=== PATIENT | male | born 1985 | race African-American/Black ===

== ENCOUNTER 2024-08-10 06:23 | Observation (INO) | payer OTHER, SELFPAY ==
[2024-08-10 04:10] VITALS: BMI 24.6
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
[2024-08-10] MEDS: PROTONIX 100 IV (05:24)
[2024-08-10 05:54] LABS: PT 12.7 Sec (11.4-14.6)
[2024-08-10 05:55] LABS: % Basophils 0.3 % (0-2); % Eosinophils 0.3 % (0-6); % Immature Granulocytes 0.3 % (0-0.5); % Lymphocytes 19.8 % (20.5-51.1); % Monocytes 8.4 % (1.7-9.3); % Neutrophils 70.9 % (42.2-75.2); APTT 35.7 Sec (23.4-35.0); Absolute Lymphocytes 1.3 10^3/uL (1.2-3.4); Absolute Monocytes 0.6 10^3/uL (0.1-0.6); Absolute Neutrophils 4.7 10^3/uL (1.4-6.5); Hematocrit 35.5 % (39.0-52.0); Hemoglobin 11.4 g/dL (13.0-18.0); Mean Corp Hgb Conc. 32.1 g/dL (33.0-37.0); Mean Corpuscular Volume 96.5 fL (80.0-94.0); Mean Platelet Volume 9.4 fL (7.4-10.4); Nucleated Red Blood Cells % 0 % (-); Platelet Count 235 10^3/uL (130-400); Red Blood Cell Count 3.68 10^6/uL (4.70-6.10); Red Cell Dist. Width 12.4 % (11.5-14.5); White Blood Cell Count 6.6 10^3/uL (4.8-10.8)
[2024-08-10 05:57] LABS: ALT (SGPT) 35 U/L (0-50); AST (SGOT) 28 U/L (17-59); Albumin 3.6 g/dl (3.5-5.0); Alkaline Phosphatase 98 U/L (38-126); Blood Urea Nitrogen 28 mg/dl (9-20); Calcium 8.8 mg/dl (8.4-10.2); Carbon Dioxide 26 mmol/L (22-30); Chloride 108 mmol/L (98-107); Estimated Creatinine Clearance > 125 ml/min; Glucose 161 mg/dl (70-99); Lipase 220 U/L (23-300); Potassium 3.9 mmol/L (3.5-5.1); Sodium 142 mmol/L (135-145); Total Bilirubin 0.3 mg/dl (0.2-1.3); Total Protein 5.9 g/dl (6.3-8.2); eGFR > 60.00
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
--- NOTE | 2024-08-10 07:49 | PHANOTE ---
Therabiol(08/10/24)-Patient states unable to fill medications, has only taken his Humalog recently. Earlier in year, have fill data for Lantus, lisinopril 40mg, fenofibrate 160mg, amlodipine 10mg, toprol xl 25mg, prasugrel 10mg, zoloft 50mg,
aripiprazole 20mg, nifedipine ER 90mg.
[2024-08-10 09:13] VITALS: BP 161/107
--- NOTE | 2024-08-10 09:51 | EDRN ---
Patient wants to leave AMA, becoming agitated, removed IV medication and tubing. This RN removed patient INT. notified patient wants to leave, MD at beside to review AMA form.
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
--- NOTE | 2024-08-10 12:10 | W.DS.TRANS ---
DC Summary - Residential Substance Abuse Counselor
-
Discharge Instructions:
Instructions:
Stand-Alone Forms:
Changes to Home Medications: Yes
Discharge Medications:
DC Medications w/original date entered in [employer]
insulin lispro 100 unit/mL subcutaneous pen 1 sliding scale dose SC DIRECTED 08/10/24
Home Medication Changes
Pending Results: No
== END 2024-08-10 10:14 | disposition left against medical advice (07) ==
LOC: ED 06:23
PROVIDERS: ADMITTING PHYSICIAN Internal Medicine; ATTENDING PHYSICIAN Internal Medicine; EMERGENCY PHYSICIAN Student in an Organized Health Care Education/Training Program; FAMILY PHYSICIAN Family Medicine
DX: K62.5 Hemorrhage of anus and rectum (principal); R10.9 Unspecified abdominal pain; R51.9 Headache, unspecified; R07.81 Pleurodynia; M79.18 Myalgia, other site; E78.5 Hyperlipidemia, unspecified; G40.909 Epilepsy, unspecified, not intractable, without status epilepticus; F41.9 Anxiety disorder, unspecified; F32.A Depression, unspecified; E11.9 Type 2 diabetes mellitus without complications; I10 Essential (primary) hypertension; Z59.00 Homelessness unspecified; Z60.8 Other problems related to social environment; Z88.6 Allergy status to analgesic agent; Z91.012 Allergy to eggs; Z91.410 Personal history of adult physical and sexual abuse; Z53.29 Procedure and treatment not carried out because of patient's decision for other reasons
CPT/HCPCS: 80053; 83690; 85025; 85610; 85730; 96374; 99284; G0378

== ENCOUNTER 2025-01-22 08:00 | Emergency (ER) | payer OTHER, SELFPAY ==
[2025-01-22 08:18] VITALS: BP 126/78
--- NOTE | 2025-01-22 10:30 | ED.GENMED ---
History of Present Illness
General
Chief Complaint: Musculo-Skeletal Complaint
Time Seen by Provider: 01/22/25 09:26
History of Present Illness
History of Present Illness:
39-year-old male with homelessness presenting for left foot pain. Denies any known injury. Reports generalized pain to the foot. Denies numbness or tingling. Has been able to bear weight. Denies fever. Patient also requesting STD testing and
HIV testing. Denies acute complaints. Denies additional medical complaints
Phy Exam
Physical Exam
Physical Exam:
General: Well-appearing, no clinical signs of dehydration, nontoxic and in no acute distress
HEENT: protecting airway
Neck: appears supple
CV: Normal heart rate
Resp: No accessory muscle use, no increased work of breathing
Abd: No distention
Extremities: No deformities, mild swelling with generalized tenderness of the foot. Range of motion grossly intact.
Neuro: alert, no focal neurologic deficit
: deferred
Rectal: deferred
Psych: Normal affect
Skin: Intact
Course
Orders/Labs/Results
Orders:
Orders
01/22/25 08:21
Foot, Left 3 View [CR Foot - Left Min 3 Views] Urgent
Comment:
Reason For Exam: pain
01/22/25 09:40
Ortho Boot Left- Treatment ONCE
Short or tall?: Short
01/22/25 09:57
HIV-1 by Quantitative NAAT [S] Urgent
Chlamydia/GC by PCR Urgent
JEEVAN Source: Urine
Specimen Description:
Source:: URINE
Date Specimen was Collected: 01/22/25
Time Specimen was Collected: 09:49
Vital Signs
Initial and Last Documented VS:
Initial Vital Signs
Temp Pulse Resp BP Pulse Ox
98 F 74 16 126/78 98
01/22/25 08:18 01/22/25 08:18 01/22/25 08:18 01/22/25 08:18 01/22/25 08:18
Last Documented Vital Signs
Temp Pulse Resp BP Pulse Ox
98 F 74 16 126/78 98
01/22/25 08:18 01/22/25 08:18 01/22/25 08:18 01/22/25 08:18 01/22/25 08:18
MDM/Problems Addressed
MDM/Problems Addressed:
39-year-old male presenting to the emergency department for left foot pain. Vital signs are normal.
On exam, patient resting comfortably, no acute distress. On examination of the foot, no significant deformity. Minimal swelling. No infectious findings. No neurovascular compromise. X-ray obtained, consistent with a fracture to the distal
phalanx of the first toe. Patient placed in Ortho boot. Feel stable for discharge with outpatient orthopedic follow-up. Patient is also requesting STD testing as well as HIV testing. No present complaints. Testing sent. Patient will call
for results. Return precautions discussed
*Critical Care Note
Total Time (30-74mins, 75-104mins- exclusive of procedures): Not Applicable
ED Attending Note
-
Portions of this chart may have been created with voice recognition software.� Occasional wrong word or��sound alike� substitutions may have occurred due to the inherent limitations of voice recognition software.
Discharge Plan
Departure
Patient Disposition: Home (Routine Discharge)
Date of Disposition: 01/22/25
Time of Disposition: 10:27
Patient with high blood pressure during this ER visit?: No
Condition: Good
Discharge Problem:
Fracture of distal phalanx of left great toe
Instructions: Foot Fracture ED
Prescriptions:
No Action
insulin lispro 100 unit/mL Insulin Pen
1 sliding scale dose SC DIRECTED
Referrals:
Heydi Short I., DO [Active] -
UNKNOWN - PT DOES,NOT KNOW [Family Provider] -
Activity Restrictions/Additional Instructions:
You were seen in the emergency department for foot pain
You were found to have a fracture, or broken bone, to the left first toe. You were placed in a boot. Please follow-up with orthopedic doctor.
Please follow-up closely with your primary care physician.
Return to the emergency department for any worsening of your symptoms, or any development of chest pain, difficulty breathing, abdominal pain with persistent vomiting and inability to tolerate food or liquid by mouth (concern for dehydration),
weakness, headache or confusion, fever greater than 100.4, or any additional symptoms that are concerning to you.
Thank you for choosing [facility].
Interventions
Interventions:
*Risk Screen - Suicide Last Done: 01/22/25 08:18
*General Assessment Last Done: 01/22/25 09:40
*Neglect/Abuse Screening Last Done: 01/22/25 08:18
*ED- Fall Risk Assessment Last Done: 01/22/25 09:40
*ED COVID-19 Vaccine History Last Done: 01/22/25 09:40
*Nursing Disposition Last Done: 01/22/25 11:43
ED-Musculoskeletal Assessment Last Done: 01/22/25 09:40
Discharge Date and Time
Discharge Date/Time: 01/22/25 11:44
Print Language: COMORAN
[2025-01-24 09:03] LABS: HIV-1 Quan NAAT Interpretation Not Detected (Not Detected); HIV-1 Quant NAAT (copies/ml) Not Detected cpy/mL; HIV-1 Quant NAAT (log copy/mL) Not Detected log cpy/mL
== END 2025-01-22 11:44 | disposition home or self-care (01) ==
LOC: EMR 08:00
PROVIDERS: EMERGENCY PHYSICIAN Student in an Organized Health Care Education/Training Program
DX: S92.422A Displaced fracture of distal phalanx of left great toe, initial encounter for closed fracture (principal); X58.XXXA Exposure to other specified factors, initial encounter; Z59.00 Homelessness unspecified; Z11.3 Encounter for screening for infections with a predominantly sexual mode of transmission
CPT/HCPCS: 99284; 73630; 87491; 87536; 87591

== ENCOUNTER 2025-03-04 00:44 | Emergency (ER) | payer OTHER, SELFPAY ==
[2025-03-04 00:47] VITALS: BP 136/87
[2025-03-04 01:41] VITALS: BMI 25.9
[2025-03-04 01:47] VITALS: BP 129/87
[2025-03-04] MEDS: LIDOCAINE 4% PATCH 1 PATCH TOPICAL (03:57)
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
== END 2025-03-04 05:30 | disposition home or self-care (01) ==
LOC: EMR 00:44
PROVIDERS: EMERGENCY PHYSICIAN Emergency Medicine
DX: S39.012A Strain of muscle, fascia and tendon of lower back, initial encounter (principal); X58.XXXA Exposure to other specified factors, initial encounter; Z59.00 Homelessness unspecified; Z88.6 Allergy status to analgesic agent
CPT/HCPCS: 99283